=== PATIENT | male | born 1955 | race Caucasian/White ===

== ENCOUNTER 2023-04-14 18:15 | Emergency (ER) | payer BC, MEDICARE ==
[2023-04-14] MEDS ORDERED: Lidocaine 1% with EPINEPHrine 1:100,000 20 ML MDV INFILT ONE (18:16)
[2023-04-14] MEDS ORDERED: Diphtheria/Tetanus Toxoids,Adult (Td) 0.5 ML SDV IM ONE (18:30)
[2023-04-14] MEDS ORDERED: Diphtheria,Pertussis(Acell),Tetanus Vaccine 0.5 ML Syringe IM ONE (18:41)
== END 2023-04-14 19:42 | disposition home or self-care (01) ==
LOC: FB.ED 18:15
DX: S01.81XA Laceration without foreign body of other part of head, initial encounter (principal); Z23 Encounter for immunization; W18.30XA Fall on same level, unspecified, initial encounter; W22.8XXA Striking against or struck by other objects, initial encounter
CPT/HCPCS: 12015; 90471; 90715; 99283-25

== ENCOUNTER 2023-08-04 07:06 | Day surgery (SDC) | payer MEDICARE ==
[~2023-08-04 07:06] MED LIST: Sodium Chloride 0.9% 10 ML Syringe FLUSH PRN
[2023-08-04] MEDS ORDERED: Propofol 200 MG/20 ML SDV IV ONE (07:07)
[2023-08-04] MEDS ORDERED: fentaNYL 100 MCG/2 ML SDV IV ONE (07:07)
[2023-08-04] MEDS ORDERED: Midazolam 1 MG/ML 2 ML SDV IV ONE (07:07)
[2023-08-04] MEDS: Lactated Ringers 1,000 ML IV SCH (07:45)
[2023-08-04] MEDS: Simethicone Drops 40 MG/0.6 ML 30 ML Bottle PO ONE (07:59)
== END 2023-08-04 09:30 | disposition home or self-care (01) ==
LOC: FB.SDS 07:06
PROVIDERS: ATTEND Surgery
DX: Z12.11 Encounter for screening for malignant neoplasm of colon (principal); K63.5 Polyp of colon; F17.220 Nicotine dependence, chewing tobacco, uncomplicated
CPT/HCPCS: 00811; 45384; 45385; 88305; A9270; J2250; J2704; J3010; J7120